=== PATIENT | male | born 1935 | race Caucasian/White ===

== ENCOUNTER 2017-03-19 10:00 | Outpatient (CLI) | payer MEDICARE ==
[2017-03-19 13:07] LABS: ALT (SGPT) 22 U/L (8-55); AST (SGOT) 39 U/L (5-34); Alkaline Phosphatase 72 U/L (40-150); Anion Gap 18 mmol/L (10-20); BUN (Urea Nitrogen) 24 mg/dL (8.4-25.7); Bilirubin, Direct 0.4 mg/dL (0.1-0.3); Bilirubin, Total 0.8 mg/dL (0.2-1.2); Calc. Creatinine Clearance 0 mL/min (70-130); Calcium 9.3 mg/dL (7.8-10.44); Carbon Dioxide 23 mmol/L (23-31); Cardiac Risk 2.8 (Less than 4.5); Chloride 104 mmol/L (98-107); Cholesterol 163 mg/dl (< 200 Desired); Estimated GFR-MDRD 38; Glucose 76 mg/dL (83-110); HDL Cholesterol 58 mg/dL (>60 Neg Risk); LDL Cholesterol, Calculated 90 mg/dL; Potassium 4.6 mmol/L (3.5-5.1); Sodium 140 mmol/L (136-145); Triglycerides 73 mg/dL (Less than 150)
[2017-03-19 13:31] LABS: Hemoglobin A1c 5.3 % (4.0-6.0)
[2017-03-19 14:07] LABS: Hemoglobin 14.7 g/dL (14.0-18.0); Mean Corpuscular HGB CONC 33.8 g/dL (32.0-36.0); Mean Corpuscular Hemoglobin 33.7 pg (27.0-31.0); Mean Corpuscular Volume 99.7 fl (80.0-94.0); Mean Platelet Volume 7.1 fL (7.4-10.4); Platelet Count 104 thou/uL (130-400); RBC Distribution Width 12.4 % (11.5-14.5); Red Blood Cell (RBC) Count 4.35 mill/uL (4.70-6.10); White Blood Cell (WBC) Count 7.2 thou/uL (4.8-10.8)
[2017-03-19 14:08] LABS: Eosinophils 1 % (0-10); Lymphocytes 46 % (21-51); MDiff Complete? YES; Monocytes 7 % (0-10); Neutrophil 46 % (42-75); PLT Morphology Comment Appears Decreased
== END 2017-03-19 10:01 | disposition home or self-care (01) ==
LOC: NAVSJIPCSP 10:00
PROVIDERS: ATTEND Family Medicine
DX: I50.9 Heart failure, unspecified (principal); I25.5 Ischemic cardiomyopathy; E78.00 Pure hypercholesterolemia, unspecified; I10 Essential (primary) hypertension; Z79.899 Other long term (current) drug therapy
CPT/HCPCS: 36415; 80048; 80061; 80076; 83036; 83880; 84403; 85025

== ENCOUNTER 2017-09-22 13:01 | Outpatient (CLI) | payer MEDICARE ==
--- NOTE | 2017-09-22 15:09 | RAD ---
CHEST ONE VIEW LEFT RIBS TWO VIEWS: History: 82-year-old male with left rib pain following a fall. FINDINGS: Minimally displaced left 8th and 9th ribs in the posterolateral aspect are noted. Minimal blunting of the left costophrenic angle. Nondisplaced fracture of the left 10th rib at the anterior costochondra l junction. No pneumothorax. Multiple healed right rib fractures. IMPRESSION: Acute minimally displaced and nondisplaced fractures of the left ribs. No significant pneumothorax. H ealed right rib fractures. Atherosclerosis of the aorta. POS: COLLIN
== END 2017-09-22 13:02 | disposition home or self-care (01) ==
LOC: NAV RAD 13:01
PROVIDERS: ATTEND Family Medicine
DX: S22.42XA Multiple fractures of ribs, left side, initial encounter for closed fracture (principal); I70.0 Atherosclerosis of aorta; Z87.81 Personal history of (healed) traumatic fracture

== ENCOUNTER 2018-01-17 08:53 | Emergency (ER) | payer MEDICARE ==
[2018-01-17 10:12] LABS: Anion Gap 14 mmol/L (10-20); BUN (Urea Nitrogen) 23 mg/dL (8.4-25.7); Calc. Creatinine Clearance 0 mL/min (70-130); Calcium 8.6 mg/dL (7.8-10.44); Carbon Dioxide 20 mmol/L (23-31); Chloride 102 mmol/L (98-107); Estimated GFR-MDRD 35; Glucose 201 mg/dL (83-110); Sodium 132 mmol/L (136-145)
[2018-01-17] MEDS ORDERED: cloNIDine 0.1 MG TAB ONE (11:17)
== END 2018-01-17 12:01 | disposition home or self-care (01) ==
LOC: NAV ERS 08:53
DX: B02.9 Zoster without complications (principal); E87.1 Hypo-osmolality and hyponatremia; I10 Essential (primary) hypertension; E78.5 Hyperlipidemia, unspecified; Z79.82 Long term (current) use of aspirin; Z79.899 Other long term (current) drug therapy
CPT/HCPCS: 80048; 93005

== ENCOUNTER 2018-06-04 08:42 | Outpatient (CLI) | payer MEDICARE ==
[2018-06-04 09:23] LABS: #Eosinphils 0.1 thou/uL (0.0-0.7); #Lymphocytes 1.2 thou/uL (1.20-3.40); #Monocytes 0.4 thou/uL (0.11-0.59); #Neutrophils 2.2 thou/uL (1.40-6.50); %Eosinophils 3.3 % (0.0-10.0); %Lymphocytes 30.8 % (21.0-51.0); %Monocytes 9.3 % (0.0-10.0); %Neutrophils 55.6 % (42.0-75.0); Hemoglobin 8.9 g/dL (14.0-18.0); Mean Corpuscular HGB CONC 33.2 g/dL (32.0-36.0); Mean Corpuscular Hemoglobin 32.8 pg (27.0-31.0); Mean Corpuscular Volume 98.8 fL (78.0-98.0); Mean Platelet Volume 6.8 fL (7.4-10.4); Platelet Count 82 thou/uL (130-400); RBC Distribution Width 13.6 % (11.5-14.5); Red Blood Cell (RBC) Count 2.71 mill/uL (4.70-6.10); White Blood Cell (WBC) Count 3.9 thou/uL (4.8-10.8)
== END 2018-06-04 08:43 ==
LOC: NAV LAB 08:42
PROVIDERS: ATTEND Family Medicine
DX: D64.9 Anemia, unspecified (principal); R19.5 Other fecal abnormalities
CPT/HCPCS: 36415; 85025

== ENCOUNTER 2018-06-05 08:44 | Outpatient (CLI) | payer MEDICARE ==
[2018-06-05 09:07] LABS: #Eosinphils 0.1 thou/uL (0.0-0.7); #Lymphocytes 1.3 thou/uL (1.20-3.40); #Monocytes 0.4 thou/uL (0.11-0.59); #Neutrophils 2.9 thou/uL (1.40-6.50); %Basophils 0.7 % (0.0-1.0); %Eosinophils 1.3 % (0.0-10.0); %Lymphocytes 27.6 % (21.0-51.0); %Monocytes 8.3 % (0.0-10.0); %Neutrophils 62.1 % (42.0-75.0); Hemoglobin 8.6 g/dL (14.0-18.0); Mean Corpuscular HGB CONC 32.7 g/dL (32.0-36.0); Mean Corpuscular Hemoglobin 32.3 pg (27.0-31.0); Mean Corpuscular Volume 98.6 fL (78.0-98.0); Mean Platelet Volume 7.3 fL (7.4-10.4); Platelet Count 84 thou/uL (130-400); RBC Distribution Width 13.4 % (11.5-14.5); Red Blood Cell (RBC) Count 2.66 mill/uL (4.70-6.10); White Blood Cell (WBC) Count 4.6 thou/uL (4.8-10.8)
== END 2018-06-05 08:45 | disposition home or self-care (01) ==
LOC: NAV LAB 08:44
PROVIDERS: ATTEND Family Medicine
DX: D64.9 Anemia, unspecified (principal); R19.5 Other fecal abnormalities
CPT/HCPCS: 36415; 85025

== ENCOUNTER 2018-08-28 12:31 | Outpatient (CLI) | payer MEDICARE ==
[2018-08-28 16:28] LABS: #Basophils 0.1 thou/uL (0.0-0.2); #Eosinphils 0.1 thou/uL (0.0-0.7); #Lymphocytes 1.3 thou/uL (1.20-3.40); #Monocytes 0.5 thou/uL (0.11-0.59); #Neutrophils 3.2 thou/uL (1.40-6.50); %Eosinophils 1.9 % (0.0-10.0); %Lymphocytes 25.8 % (21.0-51.0); %Monocytes 8.7 % (0.0-10.0); %Neutrophils 62.6 % (42.0-75.0); Hemoglobin 7.5 g/dL (14.0-18.0); Mean Corpuscular HGB CONC 31.5 g/dL (32.0-36.0); Mean Corpuscular Hemoglobin 30.1 pg (27.0-31.0); Mean Corpuscular Volume 95.5 fL (78.0-98.0); Mean Platelet Volume 6.8 fL (7.4-10.4); Platelet Count 84 thou/uL (130-400); RBC Distribution Width 17.1 % (11.5-14.5); White Blood Cell (WBC) Count 5.1 thou/uL (4.8-10.8)
[2018-08-28 16:38] LABS: ALT (SGPT) 20 U/L (8-55); AST (SGOT) 47 U/L (5-34); Albumin 3.2 g/dL (3.4-4.8); Alkaline Phosphatase 67 U/L (40-150); Anion Gap 14 mmol/L (10-20); BUN (Urea Nitrogen) 40 mg/dL (8.4-25.7); Bilirubin, Total 0.5 mg/dL (0.2-1.2); Calc. Creatinine Clearance 0 mL/min (70-130); Calcium 9.3 mg/dL (7.8-10.44); Carbon Dioxide 25 mmol/L (23-31); Chloride 106 mmol/L (98-107); Estimated GFR-MDRD 35; Globulin 2.7 g/dL (2.4-3.5); Glucose 162 mg/dL (83-110); Potassium 3.8 mmol/L (3.5-5.1); Protein, Total 5.9 g/dL (5.8-8.1); Sodium 141 mmol/L (136-145)
== END 2018-08-28 12:32 | disposition home or self-care (01) ==
LOC: NAVSJIPCSP 12:31
PROVIDERS: ATTEND Internal Medicine Gastroenterology
DX: D50.0 Iron deficiency anemia secondary to blood loss (chronic) (principal); R10.9 Unspecified abdominal pain
CPT/HCPCS: 36415; 80053; 85025

== ENCOUNTER 2018-08-31 09:06 | Observation (INO) | payer MEDICARE ==
[2018-08-31] MEDS ORDERED: Furosemide 40 MG/4 ML VIAL SLOW IVP SCH (12:15)
[2018-08-31 20:01] VITALS: TEMP 96.9
[2018-08-31 21:34] LABS: Anisocytosis SLIGHT = 6-15 cells (100X) (0-5/hpf); Band 16 % (5-11); Eosinophils 1 % (0-10); Hemoglobin 9.2 g/dL (14.0-18.0); Hypochromia SLIGHT = 6-15 cells (100X) (0-5/hpf); Lymphocytes 36 % (21-51); MDiff Complete? YES; Mean Corpuscular HGB CONC 32.1 g/dL (32.0-36.0); Mean Corpuscular Hemoglobin 30.5 pg (27.0-31.0); Mean Corpuscular Volume 94.7 fL (78.0-98.0); Mean Platelet Volume 8.4 fL (7.4-10.4); Monocytes 1 % (0-10); Neutrophil 46 % (42-75); Platelet Count 77 thou/uL (130-400); Platelet Morphology Comment Appears Decreased; Polychromasia SLIGHT = 2-3 cells (100X) (0-2/hpf); Red Blood Cell (RBC) Count 3.01 mill/uL (4.70-6.10); White Blood Cell (WBC) Count 3.7 thou/uL (4.8-10.8)
[2018-08-31 22:45] VITALS: BP 166/78
--- NOTE | 2018-09-01 10:52 | SS ---
DATE OF ADMISSION: 08/31/2018 DATE OF DISCHARGE: 08/31/2018 HISTORY OF PRESENT ILLNESS: This is an 83-year-old male, brought in today for blood transfusion. The patient has history of gastric ulcer and had an EGD done 2 months ago and was found to have ulcers which were nonbleeding. The patient was placed on PPI. The patient was in my office this past Friday with episode of abdominal pain, nausea, and vomiting. He has multiple loose stools and also vomited several times. He gave history of some pus in . He had a CBC done on Friday and the CBC showed anemia. The hemoglobin was 7.5. It is always good for a transfusion, but the patient opted to come this Friday morning for transfusion. Over the weekend, he has done very well. No abdominal pain. No nausea or vomiting. Stools are back to normal in color. The patient brought today just for blood transfusion. ALLERGIES: PENICILLIN, LIPITOR, AND COZAAR. SOCIAL HISTORY: He is . Does not smoke or drink alcohol. MEDICAL ILLNESS: 1. Hypertension. 2. Coronary artery bypass graft. 3. Recent pneumonia. 4. History of GI bleeding and was found to have gastric ulcers. PHYSICAL EXAMINATION: GENERAL: He is very thin built, appears comfortable. VITAL SIGNS: Pulse is 70, blood pressure 110/70. HEENT: Conjunctivae are clear. NECK: Supple. No adenitis or thyromegaly noted. CARDIOVASCULAR: First and second heart sounds heard. LUNGS: Clear to auscultation. ABDOMEN: Soft. Abdomen is nontender. There is no organomegaly or masses. Bowel sounds are normal. ADMITTING DIAGNOSES: Anemia, severe with hemoglobin as low as 7.5. He is also due to BUN of 40. PLAN: Transfuse 2 units of packed cells and discharge home. He will have further evaluation as outpatient. Job ID: [id number]
== END 2018-08-31 21:45 | disposition home or self-care (01) ==
LOC: NAV ACUTE 09:06
PROVIDERS: ADMIT Internal Medicine Gastroenterology; ATTEND Internal Medicine Gastroenterology
PROC: 30233N1 Transfusion of Nonautologous Red Blood Cells into Peripheral Vein, Percutaneous Approach (ICD-10-PCS; principal; 2018-08-31)
DX: D64.9 Anemia, unspecified (principal); I10 Essential (primary) hypertension; Z79.899 Other long term (current) drug therapy; Z88.0 Allergy status to penicillin; Z88.8 Allergy status to other drugs, medicaments and biological substances; Z95.1 Presence of aortocoronary bypass graft
CPT/HCPCS: 36415; 36430; 85025; 86850; 86900; 86901; 86922; G0379; J1940; P9016

== ENCOUNTER 2019-04-23 11:19 | Emergency (ER) | payer MEDICARE ==
[2019-04-23 12:06] LABS: Bilirubin Negative (Negative); Blood, Urine Negative (Negative); Clarity Clear (Clear); Glucose, Urine (Dipstick) Negative (Negative); Leukocyte Negative (Negative); Nitrite Negative (Negative); Protein, Urine (Dipstick) Negative (Neg-Trace)
[2019-04-23 12:07] LABS: INR-International Normal Ratio 1.5; Prothrombin Time 18.1 SEC (12.0-14.7)
[2019-04-23] MEDS ORDERED: Pantoprazole 40 MG VIAL ONE (12:13)
[2019-04-23 12:16] LABS: ALT (SGPT) 16 U/L (8-55); AST (SGOT) 39 U/L (5-34); Albumin 3.5 g/dL (3.4-4.8); Alkaline Phosphatase 72 U/L (40-150); Anion Gap 17 mmol/L (10-20); BUN (Urea Nitrogen) 35 mg/dL (8.4-25.7); Bilirubin, Total 0.7 mg/dL (0.2-1.2); Calc. Creatinine Clearance 0 mL/min (70-130); Calcium 9.6 mg/dL (7.8-10.44); Carbon Dioxide 21 mmol/L (23-31); Chloride 100 mmol/L (98-107); Estimated GFR-MDRD 27; Globulin 3.3 g/dL (2.4-3.5); Glucose 146 mg/dL (83-110); Potassium 4.2 mmol/L (3.5-5.1); Protein, Total 6.8 g/dL (5.8-8.1); Sodium 134 mmol/L (136-145)
[2019-04-23 12:25] LABS: #Basophils 0.1 thou/uL (0.0-0.2); #Eosinphils 0.2 thou/uL (0.0-0.7); #Lymphocytes 1.6 thou/uL (1.20-3.40); #Monocytes 0.9 thou/uL (0.11-0.59); #Neutrophils 3.8 thou/uL (1.40-6.50); %Basophils 0.9 % (0.0-1.0); %Eosinophils 2.9 % (0.0-10.0); %Lymphocytes 23.9 % (21.0-51.0); %Monocytes 13.7 % (0.0-10.0); %Neutrophils 58.5 % (42.0-75.0); Hemoglobin 9.9 g/dL (14.0-18.0); Mean Corpuscular HGB CONC 31.9 g/dL (32.0-36.0); Mean Corpuscular Hemoglobin 31.5 pg (27.0-31.0); Mean Corpuscular Volume 98.6 fL (78.0-98.0); Mean Platelet Volume 5.6 fL (7.4-10.4); Platelet Count 98 thou/uL (130-400); RBC Distribution Width 15.8 % (11.5-14.5); Red Blood Cell (RBC) Count 3.16 mill/uL (4.70-6.10); White Blood Cell (WBC) Count 6.5 thou/uL (4.8-10.8)
[2019-04-23 12:34] LABS: CKMB 1.7 ng/mL (0-6.6)
--- NOTE | 2019-04-23 12:44 | RAD ---
EXAM: XR Chest Pa Lat STANDARD PROVIDED CLINICAL HISTORY: Weakness COMPARISON: 06/11/2018 FINDINGS: Cardiac and mediastinal silhouette is within normal limits. Vascular calcification, median sternotomy changes and CABG changes are again seen. Emphysematous changes are demonstrated. Small bilateral pleural effusions with bibasilar patchy airspace disease. No evidence for pneumothorax. IMPRESSION: Patchy bibasilar airspace disease and suspected small pleural effusions. Correlate with concerns for pneumonia.
[2019-04-23] MEDS ORDERED: Sodium Chloride 0.9% 500 ML ONE (12:47)
--- NOTE | 2019-04-23 12:51 | CT ---
EXAM: CT Abdomen Pelvis WO Con PROVIDED CLINICAL HISTORY: Weakness COMPARISON: 06/09/2013 FINDINGS: Small bilateral pleural effusions. Patchy tree-in-bud nodular densities involving each lung base, rig ht greater than left. There is a hyperdense 4-5 mm filling defect within the distal common duct with prominence of the comm on duct. There is no gallbladder distention. The kidneys demonstrate tiny nonobstructing calculi and stable left renal cyst. The solid abdominal o rgans are suboptimally evaluated in the absence of IV contrast material but demonstrate an otherwise unremarkable unenhanced CT appearance. There is no inflammatory fat stranding, bowel dilatation, free fluid or free air apparent. Conspicuous atherosclerotic vascular calcifications are noted involving the abdominal aorta and its b ranches. Ectasia of the infrarenal abdominal aorta without gaudencio aneurysm. Sigmoid colonic diverticulosis without CT evidence for diverticulitis. The osseous structures demonstrate no concerning lytic or blastic lesions. IMPRESSION: 1. Findings suspicious for 4-5 mm common duct stone. 2. Small bilateral nonobstructing nephrolithiasis. 3. Small bilateral pleural effusions and bibasilar tree-in-bud nodularity suggesting infectious pneum onitis. 4. Conspicuous atherosclerosis.
[2019-04-23 14:55] LABS: Troponin I 0.034 ng/mL (< 0.028)
== END 2019-04-23 15:58 | disposition short-term general hospital (02) ==
LOC: NAV ERS 11:19
DX: I11.0 Hypertensive heart disease with heart failure (principal); I50.9 Heart failure, unspecified; N28.9 Disorder of kidney and ureter, unspecified; E78.5 Hyperlipidemia, unspecified; E78.00 Pure hypercholesterolemia, unspecified; I25.2 Old myocardial infarction; Z87.891 Personal history of nicotine dependence; Z79.82 Long term (current) use of aspirin; Z79.899 Other long term (current) drug therapy
CPT/HCPCS: 36415; 71046; 74176; 80053; 81003; 82274; 82553; 83880; 84484; 85027; 85610; 85730; 93005; 96374; C9113; J7050